=== PATIENT | male | born 1960 | race Caucasian/White ===

== ENCOUNTER → 2019-10-10 | Emergency (ER) | payer SELFPAY ==
[~2019-10-10] VITALS: Ht 170.2 cm; Wt 116.6 kg
[~2019-10-10] MED LIST: ADENOSINE 6 MG/2 ML VIAL IV ONE; ADENOSINE 6MG/2ML 3 ML ONE; ASPIRIN 81 MG CHEW TAB PO ONE; SODIUM CHLORIDE 0.9% 1000ML 1,000 ML ONE
--- NOTE | 2019-10-10 15:42 | Emergency Department Note ---
History of Present Illnes History of Present Illness Chief Complaint: General Medicine Complaints History of Present Illness This is a 59 year old male Chief Complaint Comment Patient in from home via EMS with reports of SVT that started this morning around 0900. The patient was at work when the episode began. The patient went home and tried the bare down as well as tried a cold shower with no resolution. Patient states he has had SVT since he was 18 and the most recent episode was about 3 years ago. Patient stated that adenosine is usually successful in converting him out of SVT. Patient currently alert and oriented with a ventricular rate of 200+. . 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 Mode: [place] Onset (how long ago): hour(s) (1) Location: CHEST Quality: PALPITAION Radiation: Denies non-radiation, Denies back, Denies neck, Denies extremity, Denies abdomen, Denies periumbilical, Denies flank, Denies proximal, Denies d istal, Denies other Severity: moderate Onset quality: sudden Duration (how long): hour(s) (1) Timing of current episode: constant Progression: unchanged Chronicity: new Context: Denies recent illness, Denies recent surgery, Denies recent immobilization, Denies recent travel, Denies trauma/injury, Denies new medications, Denies hx of DVT/PE, Denies non-compliance w/ medications, Denies other Relieving factors: none Exacerbating factors: none Associated symptoms: Reports denies other symptoms Treatments prior to arrival: none Past Medical/Family History Physician Review I have reviewed the patient's past medical and family history. Any updates have been documented here. Past Medical History Recent Fever: No Clinical Suspicion of Infectio: No New/Unexplained Change in Ment: No Past Medical History: Hypertension Other Medical History: SVT Past Surgical History: None Social History Smoking Cessation: Never Smoker Counseling Performed: No Alcohol Use: None Any Illegal Drug Use: No Physically hurt or threatened: No Other Any Pre-Existing Lines (PICC,: No Review of Systems Review of Systems Constitutional: Reports no symptoms EENTM: Reports no symptoms Cardiovascular: Reports as per HPI Respiratory: Reports no symptoms Gastrointestinal: Reports no symptoms Genitourinary: Reports no symptoms Musculoskeletal: Reports no symptoms Integumentary: Reports no symptoms Neurological: Reports no symptoms Psychological: Reports no symptoms Endocrine: Reports no symptoms Hematological/Lymphatic: Reports no symptoms Physical Exam Related Data Allergies: Coded Allergies: No Known Allergies (Verified , 04/29/09) Triage Vital Signs Vital Signs Date Time Temp Pulse Resp B/P (MAP) Pulse Ox O2 Delivery O2 Flow Rate FiO2 10/10/19 15:20 98.1 206 26 118/92 100 Room Air Vital signs reviewed: Yes Physical Exam CONSTITUTIONAL Constitutional: Present well-developed, Present well-nourished HENT HENT: Present normocephalic, Present atraumatic, Present oropharynx clear/moist, Present nose normal HENT L/R: Present left ext ear normal, Present right ext ear normal EYES Eyes: Reports PERRL, Reports conjunctivae normal NECK Neck: Present ROM normal PULMONARY Pulmonary: Present effort normal, Present breath sounds normal CARDIOVASCULAR Cardiovascular: Present regular rhythm, Present heart sounds normal, Present capillary refill normal, Present tachycardia GASTROINTESTINAL Abdominal: Present soft, Present nontender, Present bowel sounds normal GENITOURINARY Genitourinary: Present exam deferred SKIN Skin: Present warm, Present dry MUSCULOSKELETAL Musculoskeletal: Present ROM normal NEUROLOGICAL Neurological: Present alert, Present oriented x 3, Present no gross motor or sensory deficits PSYCHOLOGICAL Psychological: Present mood/affect normal, Present judgement normal Procedures 12 Lead ECG Interpretation ECG Interpretation : 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 Date: Oct 10, 2019 Time: 15:21 Rhythm: SVT Rate: tachycardia BPM: 199 QRS axis: left Conduction: incomplete LBBB ST segments normal: Yes T waves normal: Yes Clinical Impression: abnormal ECG Critical Care Time Total Critical Care Time (min): 31 Critical care time exclusive o: separately billable procedures Critcal care time spent by me: evaluation patient response to tx, examination of patient, order/perform tx or interventions Assessment & Plan Medical Decision Making MDM SVT V TACH Reassessment Reassessment BETTER Assessment & Plan Final Impression: (1) SVT (supraventricular tachycardia) (2) Palpitation Depart Disposition: AGAINST MEDICAL ADVICE Last Vital Signs Date Time Temp Pulse Resp B/P (MAP) Pulse Ox O2 Delivery O2 Flow Rate FiO2 10/10/19 15:35 208 10/10/19 15:26 18 117/83 100 10/10/19 15:20 98.1 Room Air Medications in the ED Adenosine 3 ml @ ud STK-MED ONCE .ROUTE ; Start 10/10/19 at 15:27; Stop 10/10/19 at 15:21; Status DC Sodium Chloride 1,000 ml @ STK-MED ONCE .ROUTE ; Start 10/10/19 at 15:27; Stop 10/10/19 at 15:21; Status DC Aspirin 81 mg PRN ONCE PO ; Start 10/10/19 at 15:30; Stop 10/10/19 at 15:35; Status DC Adenosine 6 mg ONCE ONCE IV Last administered on 10/10/19at 15:35; Admin Dose 6 MG; Start 10/10/19 at 15:45; Stop 10/10/19 at 15:46 SAMI VERAS MD Oct 10, 2019 15:42
== END | disposition left against medical advice (07) ==
LOC: ER 15:30
DX: I47.1 Supraventricular tachycardia (principal); R00.2 Palpitations; I10 Essential (primary) hypertension; R94.31 Abnormal electrocardiogram [ECG] [EKG]
CPT/HCPCS: 93005; 99284; J0153; J7030

== ENCOUNTER 2020-05-04 13:47 | Emergency (ER) | payer SELFPAY ==
[~2020-05-04] VITALS: Ht 170.2 cm; Wt 116.6 kg
[2020-05-04] MEDS ORDERED: ADENOSINE 6 MG/2 ML VIAL IV ONE (14:00)
[2020-05-04 14:29] LABS: BASOPHILS # (AUTO) 0.1 (0.0-0.1); BASOPHILS % 0.6 % (0.0-1.0); EOSINOPHILS # (AUTO) 0.1 (0.0-0.4); EOSINOPHILS % 1.2 % (0.0-6.0); HEMATOCRIT 44.8 % (38.2-49.6); LYMPHOCYTES # (AUTO) 1.6 (1.0-3.2); LYMPHOCYTES % 17.6 % (18.0-39.1); MEAN CORPUSCULAR HEMOGLOBIN 30.1 pg (28-32); MEAN CORPUSCULAR HGB CONC 33.5 g/dL (31-35); MEAN CORPUSCULAR VOLUME 89.8 fL (81-99); MONOCYTES # (AUTO) 1.1 (0.2-0.8); MONOCYTES % 12.1 % (4.4-11.3); NEUTROPHILS % 68.3 % (38.7-80.0); PLATELET COUNT 267 x10e3/uL (140-360); RED BLOOD COUNT 4.99 x10e6/uL (4.3-5.7); RED CELL DISTRIBUTION WIDTH 13.5 % (11.7-14.4)
[2020-05-04] MEDS ORDERED: METOPROLOL TARTRATE INJ 1 MG/ML VIAL IV ONE (14:30)
[2020-05-04 14:43] LABS: ALANINE AMINOTRANSFERASE 59 IU/L (0-55); ALBUMIN 3.9 g/dL (3.5-5.0); ALBUMIN/GLOBULIN RATIO 1.1 (0.8-2.0); ALKALINE PHOSPHATASE 78 IU/L (40-150); ANION GAP 17.1 mmol/L (8-16); BLOOD UREA NITROGEN 18 mg/dL (7-26); BUN/CREATININE RATIO 17 (6-25); CALCIUM 8.9 mg/dL (8.4-10.2); CARBON DIOXIDE 21 mmol/L (22-29); CHLORIDE 102 mmol/L (98-107); CREATINE KINASE 176 IU/L (30-200); CREATININE, SERUM 1.04 mg/dL (0.72-1.25); EST GLOMERULAR FILTRATION RATE > 60 ML/MIN (60-); GLUCOSE 156 mg/dL (74-118); POTASSIUM 4.1 mmol/L (3.5-5.1); SODIUM 136 mmol/L (136-145)
== END 2020-05-04 15:38 | disposition home or self-care (01) ==
LOC: ER 14:00
DX: I47.1 Supraventricular tachycardia (principal); R94.31 Abnormal electrocardiogram [ECG] [EKG]; I10 Essential (primary) hypertension
CPT/HCPCS: 36415; 80053; 82550; 82553; 84484; 85025; 93005; 99283

== ENCOUNTER 2020-08-01 14:59 | Emergency (ER) | payer BC, OTHER ==
[~2020-08-01] VITALS: Ht 170.2 cm; Wt 116.6 kg
[2020-08-01] MEDS ORDERED: ASPIRIN 81 MG CHEW TAB PO STA (15:06)
[2020-08-01] MEDS ORDERED: ASPIRIN 81 MG CHEW TAB PO ONE (15:15)
[2020-08-01] MEDS ORDERED: ADENOSINE 6 MG/2 ML VIAL IV ONE (15:15)
[2020-08-01] MEDS ORDERED: METOPROLOL TARTRATE INJ 1 MG/ML VIAL ONE (15:22)
[2020-08-01 15:25] LABS: BASOPHILS % 0.5 % (0.0-1.0); EOSINOPHILS # (AUTO) 0.3 (0.0-0.4); EOSINOPHILS % 3.3 % (0.0-6.0); HEMATOCRIT 45.2 % (38.2-49.6); HEMOGLOBIN 15.5 g/dL (14.0-18.0); LYMPHOCYTES # (AUTO) 2.3 (1.0-3.2); LYMPHOCYTES % 26.1 % (18.0-39.1); MEAN CORPUSCULAR HEMOGLOBIN 30.8 pg (28-32); MEAN CORPUSCULAR HGB CONC 34.3 g/dL (31-35); MEAN CORPUSCULAR VOLUME 89.7 fL (81-99); MONOCYTES # (AUTO) 1.2 (0.2-0.8); NEUTROPHILS # (AUTO) 4.9 (2.1-6.9); NEUTROPHILS % 55.8 % (38.7-80.0); PLATELET COUNT 245 x10e3/uL (140-360); RED BLOOD COUNT 5.04 x10e6/uL (4.3-5.7); RED CELL DISTRIBUTION WIDTH 13.7 % (11.7-14.4)
[2020-08-01] MEDS ORDERED: METOPROLOL TARTRATE INJ 1 MG/ML VIAL IV ONE (15:30)
[2020-08-01 15:43] LABS: ALANINE AMINOTRANSFERASE 207 IU/L (0-55); ALBUMIN/GLOBULIN RATIO 1.1 (0.8-2.0); ALKALINE PHOSPHATASE 73 IU/L (40-150); ANION GAP 14.9 mmol/L (8-16); BLOOD UREA NITROGEN 15 mg/dL (7-26); BUN/CREATININE RATIO 14 (6-25); CALCIUM 9.4 mg/dL (8.4-10.2); CARBON DIOXIDE 23 mmol/L (22-29); CHLORIDE 104 mmol/L (98-107); EST GLOMERULAR FILTRATION RATE > 60 ML/MIN (60-); GLUCOSE 151 mg/dL (74-118); POTASSIUM 3.9 mmol/L (3.5-5.1); SODIUM 138 mmol/L (136-145)
== END 2020-08-01 17:15 | disposition home or self-care (01) ==
LOC: ER 15:05
DX: R00.2 Palpitations (principal); I47.1 Supraventricular tachycardia; I10 Essential (primary) hypertension; R94.31 Abnormal electrocardiogram [ECG] [EKG]
CPT/HCPCS: 36415; 80053; 84484; 85025; 93005; 99284; J0153

== ENCOUNTER 2024-10-14 06:48 | Emergency (ER) | payer BC, OTHER ==
[~2024-10-14] VITALS: Ht 165.1 cm; Wt 116.6 kg
[2024-10-14] MEDS ORDERED: ADENOSINE 6 MG/2 ML VIAL IV ONE (06:55)
[2024-10-14 07:00] VITALS: PULSE 93; RESP 16
[2024-10-14] MEDS ORDERED: ADENOSINE 6MG/2ML 1 ML ONE (07:05)
[2024-10-14] MEDS ORDERED: METOPROLOL SUC100 MG PO (07:09)
[2024-10-14 07:15] VITALS: BP 141/76; PULSE 83; RESP 18; TEMP 98; O2SAT 97
== END 2024-10-14 07:22 | disposition home or self-care (01) ==
LOC: ER 06:50
DX: R00.2 Palpitations (principal); I47.10 Supraventricular tachycardia, unspecified; I10 Essential (primary) hypertension; R94.31 Abnormal electrocardiogram [ECG] [EKG]
CPT/HCPCS: 93005; 99283; J0153